=== PATIENT | female | born 1955 | race Caucasian/White ===

== ENCOUNTER 2020-01-13 14:17 | Outpatient (CLI) | payer MEDICARE, BC, SELFPAY ==
--- NOTE | 2020-01-13 14:25 | XR_ITS ---
WS: [id number] PROCEDURE: XR chest 2V* [id number] CLINICAL INFORMATION: OTHER SPECIFIED RESPITATORY DISORDERS COMPARISON: None. FINDINGS: Heart: Normal cardiac silhouette. Lungs: Chronic emphysematous changes. No acute pulmonary infiltrates. No focal pneumonia. Bones: Mild thoracic curve. Osteopenia. XR/XR chest 2V* [id number] IMPRESSION: 1. Moderate chronic emphysematous changes. No acute pulmonary infiltrates. 2. No acute chest findings.
== END 2020-01-13 14:18 | disposition home or self-care (01) ==
LOC: RADWPI 14:22
PROVIDERS: Family Provider Family Medicine; PCP Nurse Practitioner Family; Visit Provider Nurse Practitioner Family
DX: J98.8 Other specified respiratory disorders (principal)
CPT/HCPCS: 71046

== ENCOUNTER 2020-02-02 13:03 | Outpatient (CLI) | payer MEDICARE, BC, SELFPAY ==
--- NOTE | 2020-02-02 13:09 | US_ITS ---
WS: [id number] THYROID ULTRASOUND REASON FOR EXAM: NECK MASS TECHNIQUE: Grayscale and Doppler ultrasound examination of the thyroid gland. FINDINGS: RIGHT: Right thyroid gland measures 6.5 cm x 3.6 cm x 2.3 cm. Right thyroid volume equals 28.4 ccm3. The rig ht lobe shows heterogeneous configuration. There is multiple communicating cystic areas with internal debris present consistent with thyroid cyst. LEFT: Left thyroid gland measures 3.7 cm x 1.0 cm x 0.9 cm. Left thyroid volume equals 1.8 ccm3. Multiple a reas in the left lobe largest were measured and showed 0.85 x 0.39 x 0.53 cm 0.87 x 0.51 x 0.67 cm ad ditional lesion measured 0.85 x 0.39 x 0.53 cm. Thyroid isthmus: 0.3 mm. US/US thyroid [id number] IMPRESSION: The right lobe shows a huge cystic lesion replacing most of the thyroid with de bris in the cyst appears to be benign. The left lobe shows multiple adenomas the largest measured 0.87 x 0.51 x 0.67 c m these appear to be benign. Follow-up evaluation in 6-12 months is recommended.
== END 2020-02-02 13:04 | disposition home or self-care (01) ==
LOC: US 13:04
PROVIDERS: Family Provider Family Medicine; PCP Nurse Practitioner Family; Visit Provider Nurse Practitioner Family
DX: E04.1 Nontoxic single thyroid nodule (principal); D34 Benign neoplasm of thyroid gland; R22.1 Localized swelling, mass and lump, neck
CPT/HCPCS: 76536

== ENCOUNTER 2020-09-11 15:25 | Outpatient (CLI) | payer MEDICARE, BC, SELFPAY ==
--- NOTE | 2020-09-11 15:32 | XR_ITS ---
WS: [id number] SCREENING DEXA SCAN [facility] CLINICAL INFORMATION: POSTMENOPAUSAL OSTEOPORORSIS COMPARISON: None. FINDINGS: The L1-L4 bone mineral density measures 1.011 g/cm2. This corresponds to a T score score of -1.4 and Z score of 0.1. Left femoral neck bone mineral density measures 0.884 g/cm2. This corresponds to a T score of -1.0 an d Z score of 0.2. Right femoral neck bone mineral density measures 0.928 g/cm2. This corresponds to a T score -0.6of an d Z score of 0.5. Mean femoral neck bone mineral density measures 0.906 g/cm2. This corresponds to a T score of -0.8 an d Z score of 0.4. XR/XR DEXA axial skeleton* [id number] IMPRESSION: Osteopenia Patient's FRAX calculated 10 year probability for major osteoporotic fracture i s 9.8 % and osteoporotic hip fracture is 1.3%.
== END 2020-09-11 15:26 | disposition home or self-care (01) ==
LOC: RADWPI 15:30
PROVIDERS: Family Provider Family Medicine; PCP Nurse Practitioner Family; Visit Provider Nurse Practitioner Family
DX: M81.0 Age-related osteoporosis without current pathological fracture (principal); M85.88 Other specified disorders of bone density and structure, other site
CPT/HCPCS: 77080

== ENCOUNTER 2021-01-24 10:53 | Outpatient (CLI) | payer MEDICARE, BC, SELFPAY ==
--- NOTE | 2021-01-24 11:10 | XR_ITS ---
WS: [id number] SOFT TISSUE NECK 2 VIEW(S) TECHNIQUE: AP and lateral views of the neck in soft tissue technique are performed. HISTORY: FOREIGN BODY IN SOFT TISSUE COMPARISON: None available. No radiopaque foreign bodies are identified. No prevertebral soft tissue swelling. Advanced degenerative spondylitic changes in the cervical spine and from the C4 level through C7. XR/XR soft tissue neck [id number] IMPRESSION: No foreign body identified in the soft tissues.
== END 2021-01-24 10:54 | disposition home or self-care (01) ==
PROVIDERS: PCP Nurse Practitioner Family; Visit Provider Nurse Practitioner Family
DX: M79.5 Residual foreign body in soft tissue (principal); D34 Benign neoplasm of thyroid gland
CPT/HCPCS: 70360

== ENCOUNTER 2021-02-11 12:38 | Outpatient (CLI) | payer MEDICARE, BC, SELFPAY ==
--- NOTE | 2021-02-11 12:45 | US_ITS ---
WS: [id number] THYROID ULTRASOUND REASON FOR EXAM: THYROID ADENOMA TECHNIQUE: Grayscale and Doppler ultrasound examination of the thyroid gland. FINDINGS: RIGHT: Right thyroid gland measures 6.5 cm x 5.4 cm x 2.9 cm. Right thyroid volume equals 53.9 ccm3. The rig ht lobe of the thyroid is been nearly replaced by a complex lesion which has a large septated central cystic component containing debris. This lesion is not changed in character or volume compared to th e previous examination of 02/02/2020. LEFT: Left thyroid gland measures 4.1 cm x 1.0 cm x 0.8 cm. Left thyroid volume equals 1.6 ccm3. There are multiple small nodules in the left lobe of the thyroid which are characterized by an outer hypoechoge nicity and inhomogeneous more central medium echogenicity. The 3 lesions previously measured were aga in measured on this examination and there is no significant change in volume or character of these le sions. Thyroid isthmus: 0.3 mm. US/US thyroid [id number] IMPRESSION: Stable complex multinodular goiter.
== END 2021-02-11 12:39 | disposition home or self-care (01) ==
LOC: US 12:40
PROVIDERS: PCP Nurse Practitioner Family; Visit Provider Nurse Practitioner Family
DX: M79.5 Residual foreign body in soft tissue (principal); D34 Benign neoplasm of thyroid gland; E04.2 Nontoxic multinodular goiter
CPT/HCPCS: 76536

== ENCOUNTER 2021-04-01 11:06 | Outpatient (CLI) | payer MEDICARE, BC, SELFPAY ==
--- NOTE | 2021-04-01 11:15 | XR_ITS ---
WS: [id number] LEFT FOOT: 3 VIEW(S) TECHNIQUE: AP, oblique and lateral. HISTORY: INJURY OF LEFT FOOT, INITIAL ENCOUNTER COMPARISON: None available. Tiny osseous or calcific density between the proximal first and second metatarsals. There is no widen ing or lateral displacement of the metacarpal. No acute fractures otherwise. Normal tarsal/metatarsal alignment. No soft tissue abnormality or bone destruction. XR/XR foot LT min 3V* [id number] IMPRESSION: 1. Small osseous or calcific density between the proximal first and second met atarsals. This may be from an old injury. Potential injury at the Lisfranc liga ment. No displacement. 2. For persistent pain consider MRI evaluation to evaluate the Lisfranc ligame nt.
== END 2021-04-01 11:07 | disposition home or self-care (01) ==
PROVIDERS: PCP Nurse Practitioner Family; Visit Provider Nurse Practitioner Family
DX: S99.922A Unspecified injury of left foot, initial encounter (principal); X58.XXXA Exposure to other specified factors, initial encounter
CPT/HCPCS: 73630

== ENCOUNTER → 2021-10-28 15:08 | Outpatient (BNVA) | payer MEDICARE, BC, SELFPAY | PROVIDERS: PCP Nurse Practitioner Family; Visit Provider Family Medicine | DX: R52 Pain, unspecified (principal) | CPT/HCPCS: 87400 ==

== ENCOUNTER 2022-01-20 07:04 | Day surgery (SDC) | payer MEDICARE, BC, SELFPAY ==
[2022-01-16 13:53] VITALS: BMI 25.6
--- NOTE | 2022-01-20 07:48 | P.HP_ITS ---
Same Day Surgery H&P Indication for Procedure/HPI DATE OF PROCEDURE: January 20, 2022 CHIEF COMPLAINT/INDICATIONFOR SURGICAL PROCEDURE: Screening PREOP DIAGNOSIS: Screen PLANNED PROCEDURE: Operation Date: 01/20/22 09:00 Proposed Procedures p Colonoscopy 46724/ G0121/Z12.11(Not Applicable) - Maycol Crocker MD Medications/Allergies* Home Medications Medication Instructions Recorded Confirmed Type aspirin 81 mg tablet,delayed 81 mg PO DAILY 10/28/21 01/16/22 History release (Adult Low Dose Aspirin) atorvastatin 10 mg tablet 10 mg PO DAILY 10/28/21 01/16/22 History bisoprolol 5 1 tab PO DAILY tab 10/28/21 01/16/22 History mg-hydrochlorothiazide 6.25 mg tablet montelukast 10 mg tablet 10 mg PO DAILY 10/28/21 01/16/22 History oxybutynin chloride 5 mg tablet 5 mg PO DAILY 10/28/21 01/16/22 History calcium carbonate 600 mg (1,500 1 tab PO DAILY 01/16/22 01/16/22 History mg)-vitamin D3 200 unit tablet cholecalciferol (vitamin D3) 25 25 mcg PO DAILY 01/16/22 01/16/22 History mcg (1,000 unit) tablet (Vitamin D3) ytwfjxju-chaaqly-cyso-lutein tablet 1 tab PO DAILY 01/16/22 01/16/22 History omega 6-lfc-mfp-vitamin E 500 1 cap PO BID 01/16/22 01/16/22 History mg-139 mg-264 mg-5 unit capsule Allergies/Adverse Reactions Allergy/AdvReac Type Severity Reaction Status Date / Time No Known Allergies Allergy Verified 01/15/22 14:07 Pertinent History/Comorbid Conditions* Social History Smoking and tobacco status: never smoked Alcohol intake: never Pertinent Exam Findings alert, oriented x 3, clear to auscultation bilaterally, regular rate & rhythm, operative site marked and procedure specific exam findings Recommendations Surgery/Procedure today Coding Level of Care Code Acute Water Restoration Technician for Raul Reza
--- NOTE | 2022-01-20 07:49 | ANES.PREANE2 ---
Pre-Anesthetic Assessment Height/Weight: Height 1.65 m Weight 69.853 kg Preop Diagnosis: Screen Operation Date: 01/20/22 09:00 Proposed Procedures p Colonoscopy 11294/ G0121/Z12.11(Not Applicable) - Maycol Crocker MD Familial anesthetic complications: none Was Beta Jorje taken within 24 hours: Yes Was Clonidine taken within 24 hours: N/A Last intake: > 8 hrs Social No alcohol and No tobacco Exam alert, oriented x 3, clear to auscultation bilaterally and regular rate & rhythm Airway Cervical ROM: within normal limits Mallampati: Class II Dentition: other (missing teeth) Pulmonary None reported CV/HEM Hypertension None reported Hepatic None reported GI Gastroesophageal Reflux Disease and Hiatal Hernia Metabolic None reported Musc/skel None reported Neuropsych None reported Anesthetic Plan ASA status: 2 Anesthesia: MAC Risk of > 500 ml blood loss (7ml/kg in children): No Medications/Allergies Home Medications Medication Instructions Recorded Confirmed Last Taken Type aspirin 81 mg tablet,delayed 81 mg PO DAILY 10/28/21 01/16/22 Unknown History release (Adult Low Dose Aspirin) atorvastatin 10 mg tablet 10 mg PO DAILY 10/28/21 01/16/22 Unknown History bisoprolol 5 1 tab PO DAILY tab 10/28/21 01/16/22 Unknown History mg-hydrochlorothiazide 6.25 mg tablet montelukast 10 mg tablet 10 mg PO DAILY 10/28/21 01/16/22 Unknown History oxybutynin chloride 5 mg tablet 5 mg PO DAILY 10/28/21 01/16/22 Unknown History calcium carbonate 600 mg (1,500 1 tab PO DAILY 01/16/22 01/16/22 Unknown History mg)-vitamin D3 200 unit tablet cholecalciferol (vitamin D3) 25 25 mcg PO DAILY 01/16/22 01/16/22 Unknown History mcg (1,000 unit) tablet (Vitamin D3) lbyndben-toacjwx-eulj-lutein tablet 1 tab PO DAILY 01/16/22 01/16/22 Unknown History omega 9-wjb-xsr-vitamin E 500 1 cap PO BID 01/16/22 01/16/22 Unknown History mg-139 mg-264 mg-5 unit capsule Allergies Allergy/AdvReac Type Severity Reaction Status Date / Time No Known Allergies Allergy Verified 01/15/22 14:07 [facility] Anesthesia Social History Smoking and tobacco status: never smoked Alcohol intake: never Data Anesthesia Cardiac Studies: No Data to Display
[2022-01-20 08:19] VITALS: BP 148/85; PULSE 71; RESP 16; TEMP 36.2; O2SAT 97
[2022-01-20] MEDS: sodium chloride 0.9% 1,000 ML 30 ML IV (08:32)
--- NOTE | 2022-01-20 09:44 | ANE.PACU2 ---
Inpatient post-anesthesia follow up: Airway intact: Yes Vital signs: Temperature 97.2 F Pulse Rate 71 Respiratory Rate 16 Blood Pressure 148/85 Pulse Oximetry 97 Oxygen Delivery Me thod Room Air Oxygen Flow Rate Fraction of Inspir ed Oxygen Hydration adequate: Yes Nausea and vomiting: No Pain level: 1 Mental status: Baseline
[2022-01-20 09:45] VITALS: BP 127/86; PULSE 78; RESP 12; TEMP 36.1; O2SAT 97
--- NOTE | 2022-01-20 09:48 | US_ITS ---
WS: [id number] THYROID ULTRASOUND HISTORY: goiter COMPARISON: None available. Right lobe: 4.5 cm x 4.3 cm x 6.7 cm (w x ap x l). Volume: 67.6 cm3. Large complex cystic nodule replacing nearly the entire thyroid. Similar to the prior examination. Co mplex cyst measures 4.7 x 3.2 x 5.1 cm. Similar to prior examinations. Left lobe: 1.1 cm x 0.9 cm x 3.7 cm (w x ap x l). Volume: 1.8 cm3. Small scattered nodules are present within the gland. These nodules are spongy formed and not increas ed in size. Isthmus: 0.4 cm. US/US thyroid [id number] IMPRESSION: 1. Stable bilateral thyroid nodules. Large, predominantly cystic nodule in the RIGHT thyroid. 2. Spongiform nodules LEFT thyroid.
[2022-01-20 09:59] VITALS: PULSE 66; RESP 18; O2SAT 99
[2022-01-20 10:01] VITALS: BP 137/78; PULSE 62; RESP 18; O2SAT 99
== END 2022-01-20 10:30 | disposition home or self-care (01) ==
PROVIDERS: PCP Nurse Practitioner Family; Visit Provider Internal Medicine
PROC: 0DJD8ZZ Inspection of Lower Intestinal Tract, Via Natural or Artificial Opening Endoscopic (ICD-10-PCS; CPT 45378; principal; 2022-01-20 09:00)
DX: Z12.11 Encounter for screening for malignant neoplasm of colon (principal); Z79.82 Long term (current) use of aspirin; K21.9 Gastro-esophageal reflux disease without esophagitis
CPT/HCPCS: 76536; G0121; J2704; J7030

== ENCOUNTER 2022-03-06 08:57 | Day surgery (SDC) | payer MEDICARE, BC, SELFPAY ==
[2022-03-05 12:22] VITALS: BMI 25.0
[2022-03-06] VITALS (19 sets, daily range): BP systolic 129–168; BP diastolic 75–118; PULSE 66–110; RESP 13–22; TEMP 36.1–36.4; O2SAT 91–100
[2022-03-06] MEDS: sodium chloride 0.9% 1,000 ML 30 ML IV (10:45)
--- NOTE | 2022-03-06 10:52 | P.ANESASSM_ITS ---
Pre-Anesthetic Assessment Height/Weight: Height 1.65 m Weight 68.039 kg Temp Pulse Resp BP Pulse Ox 97.6 F 66 16 164/83 97 03/06/22 10:26 03/06/22 10:26 03/06/22 10:26 03/06/22 10:26 03/06/22 10:26 Preop Diagnosis: Right thyroid goiter and mass Operation Date: 03/06/22 11:25 Proposed Procedures p Hemithyroidectomy 90526/e07.9/e04.9(Right) - Gareth Suresh MD Familial anesthetic complications: None Was Beta Jorje taken within 24 hours: Yes Was Clonidine taken within 24 hours: N/A Last intake: Intake Last Liquid Date 03/04/22 Last Liquid Time 20:00 Last Solid Date 03/05/22 Last Solid Time 20:00 Social No alcohol and No tobacco Exam alert, oriented x 3, clear to auscultation bilaterally and regular rate & rhythm Airway Submandibular: within normal limits Cervical ROM: within normal limits Mallampati: Class II Dentition: full History/ROS No significant complaints Pulmonary None reported No difficulty with breathing Able to lie flat CV/HEM Hypertension None reported Hepatic None reported GI Gastroesophageal Reflux Disease Metabolic Thyroid Disease (Thyroid goiter, denies Graves, hyper or hypothyroidism, thyroiditis ) and None reported Denies palpitations, diarrhea, sweats, constipation, tissue swelling Musc/skel None reported Neuropsych Anxiety and Depression Anesthetic Plan Anesthesia: Anesthesia Evaluation and General Other: We discussed risk and benefits of general anesthesia including PONV, sore throat (sometimes severe), corneal abrasion, positioning and peripheral nerve injuries, life threatening allergic reaction, post operative ICU admission requiring prolonged intubation, stroke, heart attack, , and rare incidences of recall. Patient consents to proceed with general anesthesia. Risk of > 500 ml blood loss (7ml/kg in children): No Medications/Allergies Home Medications Medication Instructions Recorded Confirmed Last Taken Type aspirin 81 mg tablet,delayed 81 mg PO DAILY 10/28/21 03/06/22 1 Week Ago History release (Adult Low Dose Aspirin) ~02/27/22 atorvastatin 10 mg tablet 10 mg PO DAILY 10/28/21 03/06/22 1 Day Ago History ~03/05/22 bisoprolol 5 1 tab PO DAILY tab 10/28/21 03/06/22 1 Day Ago History mg-hydrochlorothiazide 6.25 mg ~03/05/22 tablet montelukast 10 mg tablet 10 mg PO DAILY 10/28/21 03/06/22 1 Day Ago History ~03/05/22 oxybutynin chloride 5 mg tablet 5 mg PO DAILY 10/28/21 03/06/22 1 Day Ago History ~03/05/22 calcium carbonate 600 mg-vitamin 1 tab PO DAILY 01/16/22 03/06/22 1 Day Ago History D3 5 mcg (200 unit) tablet ~03/05/22 cholecalciferol (vitamin D3) 25 25 mcg PO DAILY 01/16/22 03/06/22 1 Day Ago History mcg (1,000 unit) tablet (Vitamin ~03/05/22 D3) sjjsnieu-cstthrq-helt-lutein tablet 1 tab PO DAILY 01/16/22 03/06/22 1 Day Ago History ~03/05/22 omega 7-gqa-cgh-vitamin E 500 1 cap PO BID 01/16/22 03/06/22 1 Day Ago History mg-139 mg-264 mg-5 unit capsule ~03/05/22 sertraline 50 mg tablet 50 mg PO BEDTIME 03/05/22 03/06/22 1 Day Ago History ~03/05/22 Allergies Allergy/AdvReac Type Severity Reaction Status Date / Time No Known Allergies Allergy Verified 03/06/22 10:32 [facility] [place] Anesthesia Social History Smoking and tobacco status: never smoked Alcohol intake: never Data Anesthesia Cardiac Studies: No Data to Display
--- NOTE | 2022-03-06 12:32 | W.PM.OPSUD ---
Surgery/Procedure H&P Update DATE OF PROCEDURE: March 06, 2022 DATE H&P PERFORMED: 02/17/22 H&P UPDATE INFORMATION: I have reviewed H&P completed within last 30 days, I have examined patient prior to procedure and No changes to prior documentation PREOP DIAGNOSIS: Right thyroid goiter and mass PRIMARY INDICATION FOR PROCEDURE: Right thyroid goiter with mass PLANNED PROCEDURE: Operation Date: 03/06/22 11:25 Proposed Procedures p Hemithyroidectomy 75943/e07.9/e04.9(Right) - Gareth Suresh MD
--- NOTE | 2022-03-06 14:05 | SUR.OPER ---
1353 family (eduardo) updated on surgery progress.
--- NOTE | 2022-03-06 14:27 | P.OP_ITS ---
Operative Report Date of procedure: March 06, 2022 Pre-op diagnosis: Preop Diagnosis Right thyroid goiter and mass Post-op diagnosis: Same Post-op findings: Multilobulated cystic mass of right thyroid replacing entire lobe. Approximately 6 x 5 x 4 cm. Procedure done: Right thyroid lobectomy Implants: No implants. However Quarter inch Lois placed to depth of wound. Specimens removed/disposition: Right thyroid lobe with large cystic mass. Sent to pathology for frozen section. Pathology: The mass was cut into by the pathologist and apparently had a xfhoikau-ave-ytxgysq fluid. No significant solid component. Defer to permanent section. Surgeon: Gareth Suresh MD Anesthesia: General and Local Estimated blood loss: 50 mL Complications: No complications encountered Findings: Large ovoid shaped mass replacing right thyroid lobe stretching strap muscles significantly to very thin layers. Brief History: 67-year-old female patient has had an enlarging right thyroid mass for several years. It was getting larger and causing symptoms of fullness and pressure and swallowing difficulties. Therefore the patient is being brought to the operating room at this time to undergo excision. Scans reveal cystic mass with minimal solid component. No surrounding lymph nodes. Patient will undergo a right thyroid lobectomy and frozen section will be accomplished if appropriate based on the findings of the specimen. The procedure its risks and complications were explained in detail to the patient in the office setting. These risks included bleeding infection numbness scarring swelling bruising and need for additional treatment cosmetic change potential need for calcium replacements in the future and possible need for thyroid hormone replacement. Potential risk of weakness or paralysis of the right vocal cord which could be temporary or permanent giving a breathy quality voice and potential aspiration issues. More serious risk such as heart attack or stroke or not surviving the surgery were also explained. With these things understood informed consent was granted and witnessed. Procedure: Description of procedure: The patient was placed on the operating table in the supine position. Adequate general endotracheal tube anesthesia was obtained. The patient received Ancef IV for prophylaxis. The patient was positioned in a semirecumbent position. Shoulder rolls were placed under the shoulders and the neck and head were tilted back slightly but still supported appropriately. Then marked the site was noted. The area was cleansed with alcohol and then a total of 5.1 mL of 2% Xylocaine with 1-100,000 epinephrine was utilized to infiltrate the incision line. This was done in a lower neck skin crease line. The patient was then prepped and draped in usual fashion. A marking pen was used to outline the slightly curvilinear incision extending across midline and laterally as far as the mass was palpated to the right side. This incision was created with the cut mode of the Bovie on low setting. Then cauterization with the needle tip Bovie was used to dissect through the fat tissue and the platysma muscle. A subplatysmal flap was raised inferiorly and superiorly. Deep to the platysma muscle was the ovoid shaped mass with significant fluctuance. It was evident that the strap muscles had been stretched significantly and thinned out significantly. It was opted to dissect the strap muscles carefully off the surface of the mass that had extended laterally. Once this was done laterally and medially the dissection was carried out from all directions laterally posteriorly inferiorly and superiorly. Hemostasis was attained with bipolar cautery. As the dissection proceeded the vessels supplying the parathyroid gla nds were identified and followed to the glands. This was done both inferiorly and superiorly preserving the glands with the vascular supply. The dissection was then carried more medially and then reflected anteriorly identifying the recurrent laryngeal nerve in its typical location in the groove adjacent to the trachea. This was observed to the insertion into the laryngeal tissue and preserved. No cauterization or bipolar cautery was used anywhere near the nerve. After the specimen was resected it was sent to pathology for frozen section. During this time the area was cleansed and irrigated with saline. There was no active bleeding identified. The pathologist called and stated that the contents of the mass were brown-staton cystic fluid and very little solid tissue was noted. This is consistent with the findings on the CT and thyroid ultrasound scans. With that information in hand and waiting to find final pathology in the next couple of days the area was once again irrigated and with no bleeding evident a small quarter inch [place] drain was placed in the depths adjacent to the larynx and trachea on the right side. This was sutured in place with a single nylon suture the neck skin. The subcutaneous fat and platysma and subcutaneous layer were all closed with interrupted 4-0 chromic suture. Then the skin was closed with running 5-0 nylon. After cleansing the neck and removal of the drapes Neosporin ointment was applied over the incision and Kerlix fluffs and rolls were then applied and wrapped around the neck making sure that there was an appropriate amount of laxity but yet pressure to apply at the appropriate tautness. With the dressing in place patient was returned to anesthesia for wake-up and extubation. The patient tolerated the procedure well having an estimated blood loss of 50 mL. She arrived in recovery in stable condition.
[2022-03-06] MEDS: ondansetron 2 mg/ML SDV 2 mL 4 MG IVP ×2 (14:58→15:11)
[2022-03-06] MEDS: HYDROmorphone 1 mg/mL INJ 1 mL 0.5 MG IVP (14:59)
--- NOTE | 2022-03-06 18:35 | ANE.PACU2 ---
Inpatient post-anesthesia follow up: Airway intact: Yes Vital signs: Temperature 97 F Pulse Rate 77 Respiratory Rate 18 Blood Pressure 145/98 Pulse Oximetry 97 Oxygen Delivery Me thod Room Air Oxygen Flow Rate 8 Fraction of Inspir ed Oxygen Hydration adequate: Yes Nausea and vomiting: No Pain level: 1 Mental status: Baseline
--- NOTE | 2022-03-07 08:49 | PC.NURSE ---
PT SENT HOME WITH 2 10/325MG OXYCODONE FOR POST OP PAIN BECAUSE UNABLE TO FILL RX AT PHARMACY ON AT 1730
== END 2022-03-06 17:35 | disposition home or self-care (01) ==
PROVIDERS: PCP Nurse Practitioner Family; Visit Provider Otolaryngology
PROC: (CPT 60220; principal; 2022-03-06 11:25)
DX: E04.9 Nontoxic goiter, unspecified (principal); K21.9 Gastro-esophageal reflux disease without esophagitis; Z79.82 Long term (current) use of aspirin
CPT/HCPCS: 60220; 88307; 88331; J0690; J1100; J1170; J1885; J2250; J2405; J2704; J3010; J3490; J7030

== ENCOUNTER → 2022-03-10 13:04 | Outpatient (BNVA) | payer MEDICARE, BC, SELFPAY | PROVIDERS: PCP Nurse Practitioner Family; Visit Provider Otolaryngology | DX: Z48.89 Encounter for other specified surgical aftercare (principal); E07.9 Disorder of thyroid, unspecified; E04.9 Nontoxic goiter, unspecified | CPT/HCPCS: 99024 ==

== ENCOUNTER → 2022-09-10 09:26 | Outpatient (BNVA) | payer MEDICARE, BC, SELFPAY | PROVIDERS: PCP Family Medicine Adult Medicine; Visit Provider Family Medicine Adult Medicine | DX: E78.5 Hyperlipidemia, unspecified (principal); I10 Essential (primary) hypertension; F41.8 Other specified anxiety disorders; E04.9 Nontoxic goiter, unspecified; J30.9 Allergic rhinitis, unspecified; N39.41 Urge incontinence | CPT/HCPCS: 80053; 80061; 84443; 85025 ==

== ENCOUNTER → 2022-12-12 09:42 | Outpatient (BNVA) | payer MEDICARE, BC, SELFPAY | PROVIDERS: PCP Family Medicine Adult Medicine; Visit Provider Family Medicine Adult Medicine | DX: E03.9 Hypothyroidism, unspecified (principal); F41.8 Other specified anxiety disorders; I10 Essential (primary) hypertension | CPT/HCPCS: 80053; 80061; 84443 ==

== ENCOUNTER → 2023-03-13 09:14 | Outpatient (BNVA) | payer MEDICARE, BC, SELFPAY | PROVIDERS: PCP Family Medicine Adult Medicine; Visit Provider Family Medicine Adult Medicine | DX: E03.9 Hypothyroidism, unspecified (principal); I10 Essential (primary) hypertension | CPT/HCPCS: 80053; 84443; 85025 ==

== ENCOUNTER → 2024-01-14 09:59 | Outpatient (BNVA) | payer MEDICARE, BC, OTHER, SELFPAY | PROVIDERS: PCP Family Medicine Adult Medicine; Visit Provider Family Medicine Adult Medicine | DX: I10 Essential (primary) hypertension (principal); E78.5 Hyperlipidemia, unspecified; E03.9 Hypothyroidism, unspecified | CPT/HCPCS: 80053; 80061; 84443; 85025 ==

== ENCOUNTER → 2024-11-07 09:49 | Outpatient (BNVA) | payer MEDICARE, BC, SELFPAY | PROVIDERS: PCP Family Medicine; Visit Provider Family Medicine | DX: I10 Essential (primary) hypertension (principal); E78.2 Mixed hyperlipidemia; E03.9 Hypothyroidism, unspecified; R79.89 Other specified abnormal findings of blood chemistry | CPT/HCPCS: 80053; 80061; 82306; 82607; 83036; 84439; 84443; 85025 ==

== ENCOUNTER → 2025-02-09 10:20 | Outpatient (BNVA) | payer MEDICARE, BC, SELFPAY | PROVIDERS: PCP Family Medicine; Visit Provider Family Medicine | DX: M54.9 Dorsalgia, unspecified (principal) | CPT/HCPCS: 81000 ==